=== PATIENT | female | born 2000 ===

== ENCOUNTER 2020-02-12 22:17 | Emergency (ER) | payer SELFPAY ==
[~2020-02-12] VITALS: Ht 160 cm; Wt 66.0 kg
--- NOTE | 2020-02-12 22:28 | NUR ---
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
--- NOTE | 2020-02-12 22:32 | NUR ---
NO C-COLLAR APPLIED, VERIFIED WITH PA. ANDRES
--- NOTE | 2020-02-12 23:23 | NUR ---
[employer]: PT FROM LOBBY TO ROOM AT THIS TIME.
--- NOTE | 2020-02-13 00:24 | NUR ---
GAVE VERBAL DISCHARGE INSTRUCTIONS TO PT, PT VERBALIZED UNDERSTANDING. PT LEFT BEFORE WRITTEN DISCHARGE COULD BE GIVEN.
[2020-02-13 00:26] VITALS: BP 122/65
== END 2020-02-13 00:28 | disposition home or self-care (01) ==
LOC: ED 02-13 00:20
DX: S20.219A Contusion of unspecified front wall of thorax, initial encounter (principal); V49.49XA Driver injured in collision with other motor vehicles in traffic accident, initial encounter; Y93.89 Activity, other specified; Y92.488 Other paved roadways as the place of occurrence of the external cause; Y99.8 Other external cause status
CPT/HCPCS: 71045; 93005; 99283